=== PATIENT | male | born 1950 | race Caucasian/White ===

== ENCOUNTER 2019-10-03 21:33 | Observation (INO) | payer MEDICARE, SELFPAY ==
--- NOTE | ~2019-10-03 | US_ITS ---
EXAMINATION: US right upper quadrant DATE: 10/04/2019 13:16 INDICATION: Right upper quadrant abdominal pain. TECHNIQUE: Multiple grayscale and Doppler ultrasound images of the abdomen were obtained. COMPARISON: CT abdomen and pelvis 10/03/2019 FINDINGS: The visualized portion of the head of the pancreas is normal. There is diffuse hepatic stea tosis. There is normal flow in main portal vein. The gallbladder is normal in size. No gallstones or gallbladder wall thickening. There was no sonographic Nagel sign. The common duct is normal and wilma ures 5 mm. IMPRESSION: 1. Diffuse hepatic steatosis. Reviewed, dictated and finalized at location A.
--- NOTE | ~2019-10-03 | CT_ITS ---
EXAMINATION: CT abdomen pelvis wo con DATE: 10/04/2019 00:38 INDICATION: Right lower quadrant abdominal pain. TECHNIQUE: Computed tomography (CT) of the abdomen and pelvis was performed without intravenous contr ast. Automated exposure control and iterative reconstruction technique were employed. The dose-length product was 484.49 mGy-cm. COMPARISON: None. FINDINGS: The visualized portions of the lung bases demonstrate mild atelectasis. No pleural effusion . The heart size is normal. There are coronary artery calcifications. No pericardial effusion. There is diffuse hepatic steatosis. The gallbladder, spleen, pancreas, adrenal glands, and kidneys are norm al. There is no urolithiasis. There is calcified atherosclerosis of the aorta and many of the other a rteries. There are no dilated loops of bowel. The appendix is normal. There is mild wall thickening o f ascending colon and cecum. There is liquid stool in the colon suggesting diarrhea. There are no pat hologically enlarged lymph nodes. There is no free intraperitoneal fluid. There is a stent in left reeves perficial femoral artery. 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 There is mild thoracolumbar spondylosis. IMPRESSION: 1. Mild wall thickening of ascending colon and cecum, consistent with colitis. Reviewed, dictated and finalized at location A.
[2019-10-03 22:44] VITALS: BP 108/69; PULSE 80; RESP 22; TEMP 36.2; O2SAT 97
[2019-10-03 23:00] VITALS: PULSE 75
--- NOTE | 2019-10-03 23:12 | ED.ABDPAIN ---
HPI - Abdominal Pain General Chief Complaint: Abdominal Pain Stated Complaint: lower RQ pain Source: patient Mode of arrival: ambulatory Limitations: no limitations History of Present Illness HPI narrative: 69-year-old complains of right lower quadrant pain rated 8/10 onset 2:00 p.m. last night, 10/01 ,associated with nausea, no vomiting. Four hours later he had an hour episode of sweats chills. He denies fever. Also for the last 4 days he has had cramping of his foot and leg. He has felt very tired, sleeping most of the past 4 days. Related Data Home Medications Medication Instructions Recorded Confirmed amlodipine 5 mg PO DAILY 10/03/19 10/03/19 aspirin 81 mg PO DAILY 10/03/19 10/03/19 atorvastatin 10 mg PO DAILY 10/03/19 10/03/19 clopidogrel 75 mg PO DAILY 10/03/19 10/03/19 lisinopril 20 mg PO DAILY 10/03/19 10/03/19 meloxicam 15 mg PO DAILY 10/03/19 10/03/19 pantoprazole 20 mg PO DAILY 10/03/19 10/03/19 tamsulosin 0.4 mg PO DAILY 10/03/19 10/03/19 vitamin B complex [B 1 tablet PO DAILY 10/03/19 10/03/19 Complex-Vitamin B12] Allergies Allergy/AdvReac Type Severity Reaction Status Date / Time No Known Allergies Allergy Verified 10/04/19 00:55 Review of Systems Constitutional: Constitutional: Reports no additional constitutional complaints Cardiovascular: Cardiovascular: Denies chest pain Respiratory: Respiratory: Denies cough and Denies dyspnea Gastrointestinal: Gastrointestinal: Reports no additional gastrointestinal complaints Genitourinary: Genitourinary: Denies dysuria Comments: Some difficulty passing urine for the last day or 2 no dysuria Musculoskeletal: Musculoskeletal: Denies arthralgias Comments: pain does not radiate in his back. He has chronic back pain Integumentary/Breasts: Skin/Breast: Denies rash Neurologic: Reports weakness PMFSH Past Medical History Medical History (Updated 10/04/19 @ 13:07 by KEKE Rowley) Alcohol abuse GERD (gastroesophageal reflux disease) Hypertension Surgical History Surgical History (Updated 10/04/19 @ 02:58 by Fam Fleming MD) History of open reduction and internal fixation (ORIF) procedure Social History Social History (Updated 10/04/19 @ 02:59 by Fam Fleming MD) Years smoked: 23 Smoking status: Current every day smoker Tobacco type: cigars Second hand tobacco smoke exposure: Yes Alcohol intake: current Drinks per week: 20 Substance use: never Gender identity (if verbalized by the patient): Male Spiritual care concerns: No Exam Narrative: Exam Narrative: Laying semi-upright in bed, appears uncomfortable. Const: Orientation/consciousness: patient oriented x3 HENMT: Mouth: Yes moist mucous membranes Eyes: Other: no sceral icterus Neck: Neck: no lymphadenopathy Chest: Chest palpation & inspection: normal inspection of the chest Resp: Effort & Inspection: normal respiratory effort Auscultation: clear to auscultation bilaterally Cardio: Rhythm: regular rhythm Heart sounds: no murmurs GI: GI Palp: Yes Soft to palpation, Yes Tenderness to palpation present (GI) (RLQ), No Guarding due to palpation present (GI), No Hernia present, No Palpable mass present and Yes Rebound tenderness present Other: no rigidity : General: No CVA tenderness Skin: General skin exam: normal color Rashes: no rashes Other: warm and dry Neuro: General: patient oriented x3 and moves all extremities Extrem: General: no pedal edema Psych: Mental Status: mental status grossly normal Course Course Emergency Course: Little pain relief with Dilaudid, significant relief with morphine. No progression of pain. Results of tests reviewed with pt; agreed with plan to admit for observation for pain control and IV antibiotics. Vital Signs Vital signs: Vital Signs Temperature 36.2 C L 10/03/19 22:44 Pulse Rate 80 10/03/19 22:44 Respiratory Rate 22 H 10/03/19 22:44 Blood Pressure 108/69 10/03/19 22:4
[2019-10-03] MEDS: LACTATED RINGERS 1,000 ML 400 ML IV CONT (23:43)
[2019-10-03] MEDS: ONDANSETRON INJ 4 MG/2 ML VIAL IV PUSH (23:44)
[2019-10-03] MEDS: MORPHINE SULFATE 4 MG/ML INJ IV PUSH (23:44)
[2019-10-03 23:54] LABS: Basophils Absolute Auto 0.04 K/mm3 (0.00-0.10); Basophils Percent Auto 0.3 % (0.0-1.0); Eosinophils Absolute Auto 0.05 K/mm3 (0.02-0.50); Eosinophils Percent Auto 0.3 % (1.0-6.0); Hematocrit 46.3 % (37.0-46.0); Hemoglobin 16.4 g/dL (12.4-15.3); Immature Granulocyte Absolute 0.13 K/mm3 (0.00-0.00); Immature Granulocyte Percent A 0.8 % (0.0-0.0); Lymphocytes Absolute Auto 1.25 K/mm3 (1.10-4.50); Mean Corpuscular HGB Conc 35.4 g/dL (32.0-36.0); Mean Corpuscular Hemoglobin 34.1 pg (27.0-31.0); Mean Corpuscular Volume 96.3 fL (78.0-102.0); Mean Platelet Volume 9.5 fl (8.7-11.0); Monocytes Absolute Auto 2.78 K/mm3 (0.10-0.90); Monocytes Percent Auto 17.7 % (2.0-11.0); Neutrophils Absolute Auto 11.5 K/mm3 (1.7-7.2); Neutrophils Percent Auto 72.9 % (50.0-70.0); Platelet Count Result 260 K/mm3 (150-420); Red Blood Count 4.81 M/mm3 (4.70-6.10); Red Cell Distribution Width 12.5 % (11.6-14.4); White Blood Count 15.7 K/mm3 (4.8-10.8)
[2019-10-04] VITALS (7 sets, daily range): BP systolic 92–140; BP diastolic 48–74; PULSE 70–76; RESP 18–20; TEMP 36–37; O2SAT 73–99; BMI 26.5
[2019-10-04 00:12] LABS: Add Urine Microscopic? YES; Appearance Urine Clear (Clear); Bilirubin Urine Negative (Negative); Blood Urine Negative (Negative); Color Urine Amber (Yellow); Glucose Urine UA Negative (Negative); Ketones Urine Negative (Negative); Leukocyte Esterase Ur Negative (Negative); Nitrate Urine Negative (Negative); Protein Urine Trace (Negative); Specific Grav Ur 1.025 (1.010-1.020); Urobilinogen Urine 0.2 mg/dL (0.2-1.0); pH Urine 5.5 (5.0-8.0)
[2019-10-04 00:21] LABS: Mucus Urine None seen /lpf; RBC Urine None seen /hpf (0-2); Squamous Epithelial Cell Urine Rare /hpf (Few); WBC Urine None seen /hpf (0-3)
[2019-10-04 00:38] LABS: Alanine Aminotransferase 20 U/L (16-63); Albumin Level 3.3 g/dL (3.4-5.0); Alkaline Phosphatase 98 U/L (46-116); Anion Gap 16.8 mmol/L (7-16); Aspartate Amino Transferase 14 U/L (15-37); Bilirubin,Total 0.9 mg/dL (0.00-1.00); Blood Urea Nitrogen 34 mg/dL (7-18); Calcium 8.8 mg/dL (8.5-10.1); Carbon Dioxide 19 mmol/L (21-32); Chloride 94 mmol/L (98-108); Estimated CRCL calculation 36 ml/min; Estimated Glomerular Filt Rate 38; Glucose 123 mg/dL (70-99); Osmolality Calculated 270 mOsm/kg (285-295); Potassium 3.8 mmol/L (3.5-5.1); Sodium 126 mmol/L (136-145); Total Protein 7.6 g/dL (6.4-8.2)
[2019-10-04] MEDS: HYDROmorphone HCL 2 MG/ML VIAL 1 MG IV PUSH (01:02)
[2019-10-04] MEDS: NICOTINE (*PBKC) 21 MG PATCH 1 PATCH TRANSDERM ×2 (01:04→09:41)
[2019-10-04 01:05] LABS: Lipase 168 U/L (73-393)
--- NOTE | 2019-10-04 01:32 | PC.NURSE ---
Dr. Fleming spoke c pt. about POC and will admit for 23 hr. obs.
[2019-10-04 02:20] LABS: Lactic Acid 0.9 mmol/L (0.4-2.0)
[2019-10-04] MEDS: CIPROFLOXACIN 400 MG/D5W 200ML 200 ML 200 MG IVPB ×2 (02:26→15:43)
--- NOTE | 2019-10-04 02:40 | ADMGEN ---
This patient, David Khanna, was admitted to 2nd Floor Room 204-2. Patient/family oriented to hospital policies and general routines including ID bracelet, bed and alarms, visiting hours, pain management, procedures, bathroom and other care routines, personal items, smoking policy, room service/diet, and visiting hours. Valuables list has been completed. Information on how to activate the Rapid Response Team has been discussed. Patient/Family are encouraged to report perceived risks to care and to ask questions if they do not understand what they are told or what they should do.
[2019-10-04] MEDS: SODIUM CHLORIDE 0.9% IV 1,000 ML 120 ML IV CONT (03:26)
--- NOTE | 2019-10-04 03:40 | PC.NURSE ---
pt sleeping, respirations even and regular, no evidence of distress or pain noted at this time, iv fluids infusing per order
--- NOTE | 2019-10-04 05:36 | PC.NURSE ---
pt resting in bed, denies any pain or needs at this time, iv fluids infusing per order
[2019-10-04 06:48] LABS: Blood Urea Nitrogen 30 mg/dL (7-18); Calcium 8.4 mg/dL (8.5-10.1); Carbon Dioxide 23 mmol/L (21-32); Estimated CRCL calculation 42 ml/min; Estimated Glomerular Filt Rate 54; Glucose 96 mg/dL (70-99)
[2019-10-04 07:14] LABS: Hematocrit 43.2 % (37.0-46.0); Hemoglobin 15.2 g/dL (12.4-15.3); Mean Corpuscular Volume 96.6 fL (78.0-102.0); Mean Platelet Volume 9.8 fl (8.7-11.0); Platelet Count Result 248 K/mm3 (150-420); Red Cell Distribution Width 12.6 % (11.6-14.4)
[2019-10-04 07:19] LABS: Band Neutrophils Percent 1 % (0-6); Lymphocytes Absolute Manual 1.43 K/mm3 (1.1-4.5); Lymphocytes Percent Manual 10 % (18-44); Monocytes Absolute Manual 2.43 K/mm3 (0.1-0.90); Monocytes Percent Manual 17 % (3-9); Neutrophils Absolute Manual 10.43 K/mm3 (1.3-6.7); Neutrophils Percent Manual 72 % (46-73); Platelet Estimate Adequate (Adequate); Total Cells Counted 100
[2019-10-04 07:57] LABS: Mean Corpuscular HGB Conc 35.2 g/dL (32.0-36.0); Red Blood Count 4.47 M/mm3 (4.70-6.10); White Blood Count 14.3 K/mm3 (4.8-10.8)
[2019-10-04 08:53] LABS: Magnesium 2.1 mg/dL (1.8-2.4)
[2019-10-04] MEDS: VITAMIN B COMPLEX CAPSULE 1 CAP PO (09:41)
[2019-10-04] MEDS: amLODIPine BESYLATE 5 MG TABLET PO (09:41)
[2019-10-04] MEDS: metroNIDAZOLE 500 MG/ISO 100ML 500 MG/100 ML BAG 100 MG IVPB ×3 (09:41→21:56)
[2019-10-04] MEDS: ENOXAPARIN 40 MG/0.4 ML SYRINGE SUB-Q (09:41)
[2019-10-04] MEDS: TAMSULOSIN HCL 0.4 MG CAPSULE PO (09:42)
[2019-10-04] MEDS: ASPIRIN 81 MG ENTERIC TABLET PO (09:42)
[2019-10-04] MEDS: ACETAMINOPHEN 500 MG TABLET 1000 MG PO (09:42)
[2019-10-04] MEDS: lisinopriL 20 MG TABLET PO (09:42)
[2019-10-04] MEDS: CLOPIDOGREL BISULFATE 75 MG TABLET PO (09:42)
[2019-10-04] MEDS: ATORVASTATIN 10 MG TABLET PO (09:42)
[2019-10-04] MEDS: MELOXICAM 7.5 MG TABLET 15 MG PO (09:43)
[2019-10-04] MEDS: PANTOPRAZOLE 40 MG TABLET 20 MG PO (09:48)
[2019-10-04 11:14] LABS: Anion Gap 9.7 mmol/L (7-16); Chloride 98 mmol/L (98-107); Osmolality Calculated 270 mOsm/kg (285-295); Potassium 3.7 mmol/L (3.4-5.0); Sodium 127 mmol/L (137-145)
--- NOTE | 2019-10-04 12:48 | PM.IMHP ---
H&P: HPI History of Present Illness Chief complaint: COLITIS HYPONATREMIA Narrative: David Khanna is a 69 year old male that presented to [facility] ED with complaints of abdominal pain. patient has a past medical history of GERD , CAD,BPH and hypertension. According to patient he started having diarrhea on Friday through Friday with cramping to his right leg and foot while at home he took Imodium. along with his diarrhea he also had right lower quadrant pain. He also noted that he did have nausea vomiting on . Patient noted that while driving his granddaughter home on Friday he started to experience excessive sweating and chills that is when he decided to come to our ED. patient's vital signs 117/70, 74, 20, 97.9 and 95% room air. patient white count was elevated on admission 15.7, patient creatinine 1.31 BUN 30 with a G FR 54. his CT was consistent with colitis. patient received IV fluid, antibiotics and Flagyl, placed on a full liquid diet and given PPI. patient will be admitted for colitis. patient does complain of right lower quadrant pain ultrasound of his right lower quadrant ordered. patient will discharge home once his pain is controlled and he is without nausea vomiting diarrhea. according to patient's he has a history of alcoholism. Review of Systems Review of Systems: Narrative: CONSTITUTIONAL :No weight loss, fever, chills, weakness or fatigue.: HEENT: Eyes: No diplopia or blurred vision. ENT: No earache, sore throat or runny nose. CARDIOVASCULAR: No pressure, squeezing, strangling, tightness, heaviness or aching about the chest, neck, axilla or epigastrium. RESPIRATORY: No cough, shortness of breath, PND or orthopnea. GASTROINTESTINAL: No nausea, vomiting or diarrhea. Right quadrant pain GENITOURINARY: No dysuria, frequency or urgency. MUSCULOSKELETAL: No muscle, back pain, joint pain or stiffness. SKIN: No change in skin, hair or nails. NEUROLOGIC: No paresthesias, fasciculations, seizures or weakness. PSYCHIATRIC: No disorder of thought or mood. ENDOCRINE: No heat or cold intolerance, polyuria or polydipsia. HEMATOLOGICAL: No easy bruising or bleeding. [facility] Past Medical History Medical History (Updated 10/04/19 @ 13:07 by [employer], [employer]) Alcohol abuse GERD (gastroesophageal reflux disease) Hypertension Surgical History Surgical History (Updated 10/04/19 @ 02:58 by Fam Fleming MD) History of open reduction and internal fixation (ORIF) procedure Social History Social History (Updated 10/04/19 @ 02:59 by Fam Fleming MD) Years smoked: 23 Smoking status: Current every day smoker Tobacco type: cigars Second hand tobacco smoke exposure: Yes Alcohol intake: current Drinks per week: 20 Substance use: never Gender identity (if verbalized by the patient): Male Spiritual care concerns: No Meds Home Medications and Allergies Home Medications Medication Instructions Recorded Confirmed Type amlodipine 5 mg PO DAILY 10/03/19 10/03/19 History aspirin 81 mg PO DAILY 10/03/19 10/03/19 History atorvastatin 10 mg PO DAILY 10/03/19 10/03/19 History clopidogrel 75 mg PO DAILY 10/03/19 10/03/19 History lisinopril 20 mg PO DAILY 10/03/19 10/03/19 History meloxicam 15 mg PO DAILY 10/03/19 10/03/19 History pantoprazole 20 mg PO DAILY 10/03/19 10/03/19 History tamsulosin 0.4 mg PO DAILY 10/03/19 10/03/19 History vitamin B complex [B 1 tablet PO DAILY 10/03/19 10/03/19 History Complex-Vitamin B12] Allergies Allergy/AdvReac Type Severity Reaction Status Date / Time No Known Allergies Allergy Verified 10/04/19 00:55 Vital Signs Vital Signs - 24 hr 10/03/19 22:44 10/03/19 23:00 10/04/19 01:08 Temperature 97.2 F L Pulse Rate 80 75 75 Respiratory Rate 22 H 18 Blood Pressure 108/69 115/67 Pulse Oximetry 97 97 10/04/19 01:39 10/04/19 02:29 10/04/19 02:45 Temperature 97.9 F 96.8 F L Pulse Rate 70 76 Respiratory Rate 18 20 20
[2019-10-04] MEDS: SACCHAROMYCES BOULARDII 250 MG CAPSULE PO (16:45)
--- NOTE | 2019-10-05 00:39 | PC.NURSE ---
Sleeping, resp even. No NV or diarrhea noted so far this shift.
--- NOTE | 2019-10-05 01:36 | PC.NURSE ---
Sleeping, resp deep & even. No NV or diarrhea noted.
[2019-10-05] MEDS: CIPROFLOXACIN 400 MG/D5W 200ML 200 ML 200 MG IVPB (02:43)
[2019-10-05] MEDS: metroNIDAZOLE 500 MG/ISO 100ML 500 MG/100 ML BAG 100 MG IVPB (05:19)
[2019-10-05 05:39] LABS: Hematocrit 43.8 % (37.0-46.0); Hemoglobin 15.3 g/dL (12.4-15.3); Mean Corpuscular HGB Conc 34.9 g/dL (32.0-36.0); Mean Corpuscular Hemoglobin 33.5 pg (27.0-31.0); Mean Corpuscular Volume 95.8 fL (78.0-102.0); Mean Platelet Volume 9.2 fl (8.7-11.0); Platelet Count Result 250 K/mm3 (150-420); Red Blood Count 4.57 M/mm3 (4.70-6.10); Red Cell Distribution Width 12.4 % (11.6-14.4); White Blood Count 13.3 K/mm3 (4.8-10.8)
[2019-10-05 05:56] LABS: Alanine Aminotransferase 30 U/L (16-63); Albumin Level 2.7 g/dL (3.4-5.0); Alkaline Phosphatase 156 U/L (46-116); Anion Gap 12.6 mmol/L (7-16); Aspartate Amino Transferase 22 U/L (15-37); Bilirubin,Total 0.9 mg/dL (0.00-1.00); Blood Urea Nitrogen 13 mg/dL (7-18); Calcium 8.4 mg/dL (8.5-10.1); Carbon Dioxide 24 mmol/L (21-32); Chloride 99 mmol/L (98-108); Estimated CRCL calculation 59 ml/min; Estimated Glomerular Filt Rate > 60; Glucose 101 mg/dL (70-99); Magnesium 1.9 mg/dL (1.8-2.4); Osmolality Calculated 274 mOsm/kg (285-295); Potassium 3.6 mmol/L (3.5-5.1); Sodium 132 mmol/L (136-145); Total Protein 6.8 g/dL (6.4-8.2)
[2019-10-05 07:57] VITALS: BP 153/78; PULSE 77; RESP 18; TEMP 37; O2SAT 93
--- NOTE | 2019-10-05 08:42 | ECG_ITS ---
Measurements Intervals [place] Rate: 80 P: 25 CA: 181 QRS: 54 QRSD: 106 T: -3 QT: 364 QTc: 421 Interpretive Statements SINUS RHYTHM DELAYED PRECORDIAL R/S TRANSITION MINIMAL Q WAVES- INFERIOR LEADS BORDERLINE ST-T WAVE ABNORMALITY- INFERIOR LEADS BORDERLINE ECG Electronically Signed On 10-05-2019 10:53:07 CDT by Michael Hill D.O.
[2019-10-05] MEDS: lisinopriL 20 MG TABLET PO (09:08)
[2019-10-05] MEDS: ATORVASTATIN 10 MG TABLET PO (09:08)
[2019-10-05] MEDS: ASPIRIN 81 MG ENTERIC TABLET PO (09:08)
[2019-10-05] MEDS: CLOPIDOGREL BISULFATE 75 MG TABLET PO (09:08)
[2019-10-05] MEDS: ENOXAPARIN 40 MG/0.4 ML SYRINGE SUB-Q (09:08)
[2019-10-05] MEDS: NICOTINE (*PBKC) 21 MG PATCH 1 PATCH TRANSDERM (09:08)
[2019-10-05] MEDS: amLODIPine BESYLATE 5 MG TABLET PO (09:08)
[2019-10-05] MEDS: VITAMIN B COMPLEX CAPSULE 1 CAP PO (09:08)
[2019-10-05] MEDS: PANTOPRAZOLE SOD SESQUIHYDRATE 20 MG TAB PO (09:09)
[2019-10-05] MEDS: MELOXICAM 7.5 MG TABLET 15 MG PO (09:09)
[2019-10-05] MEDS: SACCHAROMYCES BOULARDII 250 MG CAPSULE PO ×2 (09:09→10:15)
[2019-10-05] MEDS: TAMSULOSIN HCL 0.4 MG CAPSULE PO (09:09)
[2019-10-05] MEDS: IPRATROPIUM 0.5 MG/ALBUTEROL SULFATE 2.5 MG AMPUL.NEB 3 ML INHALATION (09:40)
[2019-10-05 09:42] VITALS: PULSE 80; RESP 16
[2019-10-05 09:51] VITALS: PULSE 82; RESP 16
[2019-10-05] MEDS: POTASSIUM CHLORIDE 20 MEQ TABLET 40 MEQ PO (10:15)
--- NOTE | 2019-10-05 12:21 | P.DS_ITS ---
DS: Admitting Diagnosis Admitting Diagnosis Admitting Diagnosis: Noninfective gastroenteritis and colitis, unspecified DS: Discharge Diagnosis Discharge Diagnosis (1) Colitis: Code(s): K52.9 - Noninfective gastroenteritis and colitis, unspecified Status: Acute Assessment and Plan: * CT indicates colitis * tolerated advancing his diet, ate 100% of his breakfast with no nausea vomiting or diarrhea * no diarrhea reported overnight or today, none for the past 24-48 hours * he has not required IV pain medicine for more than 24 hours * no nausea no vomiting * instructed patient to follow a bland, non fatty diet at discharge * WBC elevated admission 15.7, improved to 13.3, * ordered patient to have repeat CBC completed on an outpatient basis within a few days , those results go to primary care provider * discharge patient on oral Cipro and oral Flagyl * he is to follow-up with his primary care provider (2) Acute hyponatremia: Code(s): E87.1 - Hypo-osmolality and hyponatremia Status: Acute Assessment and Plan: * Possibly secondary to dehydration * eating and drinking and hydrating himself will orally * BMP this morning showed improved sodium level of 132 * ordered patient to have repeat CMP completed on an outpatient basis within a few days , those results go to primary care provider * he is to follow-up with his primary care provider (3) GERD (gastroesophageal reflux disease): Code(s): K21.9 - Gastro-esophageal reflux disease without esophagitis Status: Acute Assessment and Plan: * continue Protonix * no complaints noted (4) Hypertension: Code(s): I10 - Essential (primary) hypertension Status: Acute Assessment and Plan: * blood pressure stable and soft * continue home medication Norvasc 5 mg p.o., lisinopril 25 mg daily * no complaints noted (5) BPH (benign prostatic hyperplasia): Code(s): N40.0 - Benign prostatic hyperplasia without lower urinary tract symptoms Status: Acute Assessment and Plan: * continue Flomax * no complaints noted (6) Right lower quadrant pain: Code(s): R10.31 - Right lower quadrant pain Status: Acute Assessment and Plan: * liver enzymes and bili normal * right quadrant ultrasound showed only hepatic steatosis * patient education completed * patient admitted that he had fallen and landed on his right abdomen - appears to have a small surface hematoma upon examination and only painful with palpa tion. * no hematoma noted in CT or US resports. * CBC (H/H counts stable) and no active s/s of bleeding. * He is to follow up with his PCP regarding this finding. (7) DVT prophylaxis: Code(s): Z29.9 - Encounter for prophylactic measures, unspecified Status: Acute Assessment and Plan: * continue Lovenox * discontinued at discharge (8) CAD (coronary artery disease): Code(s): I25.10 - Atherosclerotic heart disease of [place] coronary artery without angina pectoris Status: Acute Assessment and Plan: * continue aspirin and statins and Plavix * no signs of active bleeding * CBC shows the hemoglobin hematocrit are stable (9) Alcohol abuse: Code(s): F10.10 - Alcohol abuse, uncomplicated Status: Acute Assessment and Plan: * no tremors noted no tachycardia noted no agitation noted * no sign of alcohol withdrawal symptoms or DTs * did not require Ativan * consult to case coordination, requested that they provide AA meeting information *
--- NOTE | 2019-10-05 12:21 | PM.DS ---
DS: Admitting Diagnosis Admitting Diagnosis Admitting Diagnosis: Noninfective gastroenteritis and colitis, unspecified DS: Discharge Diagnosis Discharge Diagnosis (1) Colitis: Code(s): K52.9 - Noninfective gastroenteritis and colitis, unspecified Status: Acute Assessment and Plan: CT indicates colitis tolerated advancing his diet, ate 100% of his breakfast with no nausea vomiting or diarrhea no diarrhea reported overnight or today, none for the past 24-48 hours he has not required IV pain medicine for more than 24 hours no nausea no vomiting instructed patient to follow a bland, non fatty diet at discharge WBC elevated admission 15.7, improved to 13.3, ordered patient to have repeat CBC completed on an outpatient basis within a few days , those results go to primary care provider discharge patient on oral Cipro and oral Flagyl he is to follow-up with his primary care provider (2) Acute hyponatremia: Code(s): E87.1 - Hypo-osmolality and hyponatremia Status: Acute Assessment and Plan: Possibly secondary to dehydration eating and drinking and hydrating himself will orally BMP this morning showed improved sodium level of 132 ordered patient to have repeat CMP completed on an outpatient basis within a few days , those results go to primary care provider he is to follow-up with his primary care provider (3) GERD (gastroesophageal reflux disease): Code(s): K21.9 - Gastro-esophageal reflux disease without esophagitis Status: Acute Assessment and Plan: continue Protonix no complaints noted (4) Hypertension: Code(s): I10 - Essential (primary) hypertension Status: Acute Assessment and Plan: blood pressure stable and soft continue home medication Norvasc 5 mg p.o., lisinopril 25 mg daily no complaints noted (5) BPH (benign prostatic hyperplasia): Code(s): N40.0 - Benign prostatic hyperplasia without lower urinary tract symptoms Status: Acute Assessment and Plan: continue Flomax no complaints noted (6) Right lower quadrant pain: Code(s): R10.31 - Right lower quadrant pain Status: Acute Assessment and Plan: liver enzymes and bili normal right quadrant ultrasound showed only hepatic steatosis patient education completed patient admitted that he had fallen and landed on his right abdomen - appears to have a small surface hematoma upon examination and only painful with palpation. no hematoma noted in CT or US resports. CBC (H/H counts stable) and no active s/s of bleeding. He is to follow up with his PCP regarding this finding. (7) DVT prophylaxis: Code(s): Z29.9 - Encounter for prophylactic measures, unspecified Status: Acute Assessment and Plan: continue Lovenox discontinued at discharge (8) CAD (coronary artery disease): Code(s): I25.10 - Atherosclerotic heart disease of [place] coronary artery without angina pectoris Status: Acute Assessment and Plan: continue aspirin and statins and Plavix no signs of active bleeding CBC shows the hemoglobin hematocrit are stable (9) Alcohol abuse: Code(s): F10.10 - Alcohol abuse, uncomplicated Status: Acute Assessment and Plan: no tremors noted no tachycardia noted no agitation noted no sign of alcohol withdrawal symptoms or DTs did not require Ativan consult to case coordination, requested that they provide AA meeting information educated on alcohol cessation DS: Summary Time Spent with Patient Time attestation: Total time spent providing and/or coordinating discharge services:>60 min Exam Narrative: Exam Narrative: comfortable. Const: Orientation/consciousness: patient oriented x3 HENMT: Mouth: Yes moist mucous membranes Eyes: Other: no sceral icterus Neck: Neck: no lymphadenopathy Chest: Chest palpation & inspection: normal inspec
[2019-10-05] MEDS: CIPROFLOXACIN 500 MG TAB PO (12:36)
[2019-10-05] MEDS: metroNIDAZOLE 250 MG TABLET 500 MG PO (12:36)
== END 2019-10-05 13:00 | disposition home or self-care (01) ==
LOC: CHSED 10-04 01:34 → CHS2ND 10-04 07:10
PROVIDERS: Nurse Practitioner; Admitting Provider Family Medicine; Emergency Provider Family Medicine; PCP Internal Medicine; Visit Provider Family Medicine
DX: K52.9 Noninfective gastroenteritis and colitis, unspecified (principal); E87.1 Hypo-osmolality and hyponatremia; K21.9 Gastro-esophageal reflux disease without esophagitis; I10 Essential (primary) hypertension; N40.0 Benign prostatic hyperplasia without lower urinary tract symptoms; I25.10 Atherosclerotic heart disease of native coronary artery without angina pectoris; F10.10 Alcohol abuse, uncomplicated; F17.290 Nicotine dependence, other tobacco product, uncomplicated; K76.0 Fatty (change of) liver, not elsewhere classified
CPT/HCPCS: 36415; 74176; 76705; 80048; 80053; 81001; 83605; 83690; 83735; 85025; 85027; 87040; 93005; 94640; 96361; 96366; 96367; 96372; 96374; 96375; 97161; 97165; 99284; 99285; A9270; G0378; J0744; J1170; J1650; J2270; J2405; J7030; J7120